=== PATIENT | female | born 1985 | race Two or more races ===

== ENCOUNTER 2019-01-13 08:31 | Outpatient (CLI) | payer OTHER | END 2019-01-13 08:35 | disposition home or self-care (01) | LOC: SONOGRAMA 08:31 | DX: E04.2 Nontoxic multinodular goiter (principal) ==

== ENCOUNTER 2022-12-25 09:20 | Outpatient (CLI) | payer OTHER | END 2022-12-25 09:23 | disposition home or self-care (01) | LOC: SONOGRAMA 09:20 | PROVIDERS: ATTEND Pathology Anatomic Pathology & Clinical Pathology | DX: D44.0 Neoplasm of uncertain behavior of thyroid gland (principal); D34 Benign neoplasm of thyroid gland; E06.3 Autoimmune thyroiditis ==